=== PATIENT | female | born 1980 | race American Indian/Alaskan Native ===

== ENCOUNTER 2016-07-17 20:35 | Emergency (ER) | payer OTHER ==
[2016-07-17 20:41] VITALS: BP 106/61
--- NOTE | 2016-07-17 21:34 | Emergency Department Report ---
Chief Complaint: Abdominal Pain Stated Complaint: ABDOMINAL PAIN Time Seen by Provider: 07/17/16 21:29 - HPI History of Present Illness: Intermittent lower abdominal pain x 2 weeks, along with some diarrhea, increased urinary frequency and some breast soreness; LMP 06/08/16; took 3 home UPTs yesterday and they were positive; denies N/V, dysuria, hematuria and vaginal bleeding/discharge - ROS Review of Systems: Negative except for those stated in HPI - Exam Vital Signs: Vital Signs 07/17/16 07/17/16 20:40 20:45 Temperature 99.1 F 99.1 F Pulse Rate 80 80 Respiratory 18 18 Rate Blood Pressure 106/61 Blood Pressure 106/61 [Right] O2 Sat by Pulse 100 100 Oximetry Physical Exam: Abdomen - soft, nontender, nondistended MSE screening note: Focused history and physical exam performed. Due to findings the following was ordered: ED Disposition for MSE Condition: Stable Instructions: Abdominal Pain (ED)
[2016-07-17 22:16] LABS: Basophils % (Auto) 0.5 % (0.0-1.8); Eosinophils % (Auto) 5.3 % (0.0-4.3); Hematocrit 36.9 % (30.3-42.9); Hemoglobin 12.1 gm/dl (10.1-14.3); Mean Corpuscular HGB Conc 33 % (30-34); Mean Corpuscular Hemoglobin 31 pg (28-32); Mean Corpuscular Volume 95 fl (79-97); Platelet Count 377 K/mm3 (140-440); Red Blood Count 3.88 M/mm3 (3.65-5.03); Red Cell Distribution Width 13.4 % (13.2-15.2); White Blood Count 11.4 K/mm3 (4.5-11.0)
[2016-07-17 23:24] LABS: Alanine Aminotransferase 17 units/L (7-56); Albumin 3.4 g/dL (3.9-5); Albumin/Globulin Ratio 1.3 %; Alkaline Phosphatase 48 units/L (35-129); Anion Gap 17 mmol/L; Bilirubin,Total < 0.2 mg/dL (0.1-1.2); Blood Urea Nitrogen 8 mg/dL (7-17); Calcium 8.7 mg/dL (8.4-10.2); Carbon Dioxide 22 mmol/L (22-30); Chloride 99.6 mmol/L (98-107); Glucose 89 mg/dL (65-100); Lipase 17 units/L (13-60); Sodium 135 mmol/L (137-145); Total Protein 6.1 g/dL (6.3-8.2)
[2016-07-17 23:55] LABS: Bilirubin,Urine NEG (Negative); Blood,Urine SM (Negative); Ketones,Urine TR mg/dL (Negative); Leukocyte Esterase,Urine MOD (Negative); Mucus,Urine 3+ /HPF; Nitrite,Urine NEG (Negative); Protein,Urine <15 mg/dL mg/dL (Negative)
--- NOTE | 2016-07-24 16:59 | ED Elopement Review ---
ED Pt Elopement review - Results review Lab results: Laboratory Tests 07/17/16 07/17/16 07/17/16 21:58 21:58 Unknown WBC 11.4 H RBC 3.88 Hgb 12.1 Hct 36.9 MCV 95 MCH 31 MCHC 33 RDW 13.4 Plt Count 377 Lymph % (Auto) 28.8 [place] % (Auto) 6.5 Eos % (Auto) 5.3 H Baso % (Auto) 0.5 Lymph # 3.3 [place] # 0.7 Eos # 0.6 H Baso # 0.1 Seg Neutrophils % 58.9 Seg Neutrophils # 6.8 Sodium 135 L Potassium 4.0 Chloride 99.6 Carbon Dioxide 22 Anion Gap 17 BUN 8 Creatinine 0.8 Estimated GFR > 60 BUN/Creatinine Ratio 10.00 Glucose 89 Calcium 8.7 Total Bilirubin < 0.2 AST 15 ALT 17 Alkaline Phosphatase 48 Total Protein 6.1 L Albumin 3.4 L Albumin/Globulin Ratio 1.3 Lipase 17 Urine Color Yellow Urine Turbidity Clear Urine pH 6.0 Ur Specific [place] 1.030 Urine Protein <15 mg/dl Urine Glucose (UA) Neg Urine Ketones Tr Urine Blood Sm Urine Nitrite Neg Urine Bilirubin Neg Urine Urobilinogen 2.0 Ur Leukocyte Esterase Mod Urine WBC (Auto) 56.0 H Urine RBC (Auto) 32.0 U Epithel Cells (Auto) 1.0 Urine Mucus 3+ Urine HCG, Qual Positive A - Call Back decision Pt Call Back Decision: Pt to F/U with PMD (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
== END 2016-07-18 05:19 | disposition left against medical advice (07) ==
LOC: ED 20:35
DX: R10.30 Lower abdominal pain, unspecified (principal); R19.7 Diarrhea, unspecified; Z53.21 Procedure and treatment not carried out due to patient leaving prior to being seen by health care provider
CPT/HCPCS: 36415; 80053; 81001; 81025; 83690; 85025

== ENCOUNTER 2016-11-30 16:41 | Emergency (ER) | payer OTHER, MEDICAID ==
[2016-11-30] MEDS ORDERED: LACTATED RINGERS 500 ML IV ONE (17:14)
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
[2016-11-30 18:53] LABS: Urine Drugs of Abuse Note Disclamer
[2016-11-30 19:42] LABS: Bilirubin,Urine NEG (Negative); Blood,Urine NEG (Negative); Ketones,Urine TR mg/dL (Negative); Leukocyte Esterase,Urine SM (Negative); Mucus,Urine 1+ /HPF; Nitrite,Urine NEG (Negative); Protein,Urine <15 mg/dL mg/dL (Negative); Urobilinogen,Urine < 2.0 mg/dL (<2.0)
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
[2016-11-30] MEDS ORDERED: TYLENOL PO ONE (22:14)
[2016-11-30] MEDS ORDERED: TYLENOL ONE (22:17)
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
[2016-12-01 03:58] VITALS: BP 118/70
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
== END 2016-12-01 03:56 | disposition home or self-care (01) ==
LOC: ED 16:41 → TRG 16:41 → LD 16:41 → TRG 16:44 → EDSTATUS 21:42 → ED 23:00 → LD 12-01 03:56
DX: O26.892 Other specified pregnancy related conditions, second trimester (principal); M79.641 Pain in right hand; M25.511 Pain in right shoulder; Z3A.17 17 weeks gestation of pregnancy; V89.2XXA Person injured in unspecified motor-vehicle accident, traffic, initial encounter; Y93.89 Activity, other specified; Y99.8 Other external cause status; Y92.488 Other paved roadways as the place of occurrence of the external cause
CPT/HCPCS: 51701; 59025; 76805; 76810; 80307; 81001; 85460; 85461; 86850; 86900; 86901; 99284; J2790; J7120

== ENCOUNTER 2017-02-16 05:08 | Inpatient (IN) | payer MEDICAID, OTHER ==
[2017-02-16] MEDS ORDERED: LACTATED RINGERS 2,000 ML ONE (05:58)
[2017-02-16] MEDS ORDERED: PEPCID IV NR (07:08)
[2017-02-16] MEDS ORDERED: REGLAN IV NR (07:08)
[2017-02-16] MEDS ORDERED: BICITRA PO NR (07:08)
[2017-02-16] MEDS ORDERED: BICITRA ONE (07:09)
[2017-02-16] MEDS ORDERED: REGLAN ONE ×2 (07:10→07:20)
[2017-02-16] MEDS ORDERED: PEPCID IV ONE (07:10)
[2017-02-16] MEDS ORDERED: ANCEF/STERILE WATER 2 GM/20 ML 2 GM/20 ML SYRINGE IV ONE (07:10)
[2017-02-16] MEDS ORDERED: NARCAN 0.4 MG/1 ML IV PRN ×2 (07:14→09:30)
[2017-02-16] MEDS ORDERED: DILAUDID IV PRN (07:14)
[2017-02-16] MEDS ORDERED: BENADRYL IV PRN ×2 (07:14→10:00)
[2017-02-16] MEDS ORDERED: ZOFRAN IV PRN (07:14)
--- NOTE | 2017-02-16 07:14 | Anesthesia Consultation ---
Anesthesia Consult and Med Hx Date of service: 02/16/17 - Airway Anesthetic Teeth Evaluation: Good ROM Head & Neck: Adequate Mental/Hyoid Distance: Adequate Mallampati Class: Class II Intubation Access Assessment: Probably Good - Pre-Operative Health Status ASA Pre-Surgery Classification: ASA2 Proposed Anesthetic Plan: Epidural, Spinal - Pulmonary Hx Asthma: No COPD: No Hx Pneumonia: No - Cardiovascular System Hx Hypertension: No - Central Nervous System Hx Seizures: No Hx Psychiatric Problems: No - Endocrine Hx Renal Disease: No Hx Hypothyroidism: No Hx Hyperthyroidism: No - Hematic Hx Anemia: No Hx Sickle Cell Disease: No - Other Systems Hx Alcohol Use: No - Additional Comments Anesthesia Medical History Comments: twins
--- NOTE | 2017-02-16 07:14 | Anesthesia Day of Surgery ---
Anesthesia Day of Surgery - Day of Surgery Patient Examined: Yes Patient H&P Reviewed: Yes Patient is NPO: Yes
--- NOTE | 2017-02-16 07:16 | History and Physical Report ---
History of Present Illness Date of examination: 02/16/17 Date of admission: 02/16/17 05:08 Chief complaint: here for repeat c/s History of present illness: Pt here for repeat c/s. Past History Past Medical History: no pertinent history Past Surgical History: section - Obstetrical History Expected Date of Delivery: 03/09/17 Actual Gestation: 37 Week(s) 0 Day(s) : 3 Para: 2 Number of Living Children: 2 Medications and Allergies Allergies Allergy/AdvReac Type Severity Reaction Status Date / Time No Known Allergies Allergy Verified 07/18/16 01:50 Home Medications Medication Instructions Recorded Confirmed Last Taken Type Acetaminophen [Acetaminophen TAB] 650 mg PO Q6HR PRN #60 tablet 12/01/16 Unknown Rx Active Meds: Active Medications Citric Acid/Sodium Citrate (Bicitra) 30 ml PO ONCE NR Stop: 02/16/17 12:00 Famotidine (Pepcid) 20 mg IV ONCE ONE Stop: 02/16/17 07:09 Cefazolin Sodium (Ancef/Sterile Water 2 Gm/20 Ml) 2 gm in 20 mls @ 80 mls/hr IV PREOP NR PRN Reason: Protocol Stop: 02/16/17 23:59 Lactated Ringer's (Lactated Ringers) 1,000 mls @ 2,250 mls/hr IV PREOP ERIS Stop: 02/17/17 08:27 Oxytocin/Sodium Chloride (Pitocin/Ns 20 Unit/1000ml Drip) 20 units in 1,000 mls @ 0 mls/hr IV TITR ERIS PRN Reason: As Directed Influenza Virus Vaccine Quadrival (Fluarix Quad [id number](36 Mos+)) 0.5 ml IM .ONCE ONE Stop: 02/17/17 12:01 Metoclopramide HCl (Reglan) 10 mg IV ONCE ONE Stop: 02/16/17 07:09 Review of Systems All systems: negative - Physical Exam Lungs: Positive: Normal air movement Abdomen: Positive: normal appearance, soft Extremities: Positive: normal Deep Tendon Reflex Grade: Normal +2 - Obstetrical FHR: auscultation normal Results Result Diagrams: 02/16/17 06:20 All other labs normal. Assessment and Plan - Patient Problems (1) IUGR (intrauterine growth restriction) Current Visit: Yes Status: Acute (2) Rh negative, maternal Current Visit: No Status: Acute Qualifiers: Trimester: T (3) Twin gestation in third trimester Current Visit: No Status: Acute Qualifiers: Multiple gestation type: M (4) Previous delivery affecting , antepartum Current Visit: Yes Status: Acute Plan to address problem: -admit -prepare for repeat c/s x 3
[2017-02-16] MEDS ORDERED: PITOCin/NS 20 UNIT/1000ML DRIP 20,000 MILLIUNITS/1,000 ML BAG IV ONE (07:19)
[2017-02-16 07:27] LABS: Basophils % (Auto) 0.4 % (0.0-1.8); Eosinophils % (Auto) 2.3 % (0.0-4.3); Hematocrit 35.9 % (30.3-42.9); Hemoglobin 11.8 gm/dl (10.1-14.3); Mean Corpuscular HGB Conc 33 % (30-34); Mean Corpuscular Hemoglobin 31 pg (28-32); Mean Corpuscular Volume 96 fl (79-97); Platelet Count 316 K/mm3 (140-440); Red Blood Count 3.75 M/mm3 (3.65-5.03); Red Cell Distribution Width 13.8 % (13.2-15.2); White Blood Count 9.9 K/mm3 (4.5-11.0)
[2017-02-16] MEDS ORDERED: WATER FOR IRRIG STERILE IR ONE (07:40)
[2017-02-16] MEDS ORDERED: NACL 0.9% IR ONE (07:40)
[2017-02-16] MEDS ORDERED: MORPHINE ONE (07:41)
[2017-02-16] MEDS ORDERED: LACTATED RINGERS 1,000 ML IV SCH (08:00)
[2017-02-16] MEDS ORDERED: SODIUM CHLORIDE FLUSH SYRINGE 10 ML IV NR (08:00)
[2017-02-16] MEDS ORDERED: PITOCin/NS 20 UNIT/1000ML DRIP 20 UNITS/1,000 ML BAG IV SCH (08:00)
[2017-02-16] MEDS ORDERED: ANCEF/STERILE WATER 2 GM/20 ML 2 GM/20 ML SYRINGE IV NR (08:00)
[2017-02-16] MEDS ORDERED: NACL 0.9% 1000 ML 1,000 ML ONE (08:00)
[2017-02-16] MEDS ORDERED: DILAUDID ONE (08:44)
--- NOTE | 2017-02-16 09:21 | Operative Report ---
Operative Report Operative Report: Date of procedure: 02/16/2017 Pre-operative diagnosis: Twin gestation 37 weeks Advanced maternal age Intrauterine growth restriction Previous section 2 Post-operative diagnosis: Same Procedure name(s): Repeat low transverse section via Pfannenstiel skin incision Surgeon: Dr. Dickson Material Requirements Planning Manager: Ms. Philly Dash CST Anesthesia: Combined spinal epidural EBL: 700 mL Urine output: 50 mL of clear urine at the end of the procedure Fluids: 1300 mL Findings: Grossly normal fallopian tubes and ovaries bilaterally Twin A: Liveborn female weight 4 lbs. 11 oz. Apgars of 8 and 9 at one and 5 minutes born via vertex presentation Twin B: Liveborn male weight 4 lbs. 5 oz. Apgars of 8 and 9 at one and 5 minutes born via breech extraction Indications: Patient presents for repeat section at 37 weeks due to trend gestation with intrauterine growth restriction for both babies. All risk and benefits and alternatives were discussed with the patient prior to the section. All questions were addressed and answered. Patient signed consent form prior to procedure. Procedure: Patient was taking to the operating room. Patient was then prepped and draped in sterile fashion after anesthesia was found to be adequate. A low transverse skin incision was made with the scalpel through previous incisional scar and carried down to the underlying layer of fascia with the Bovie. The fascia was then incised in the midline and this incision was extended bilaterally with the Bovie. The superior aspect of the fascia was grasped with Radha clamps tented upward and dissected off of the anterior rectus muscles with the scalpel. In similar fashion the inferior aspect of the fascia was grasped with Radha clamps tented upward and dissected off of the anterior rectus muscles. The rectus muscles were then bluntly divided in the midline. The peritoneum was identified and entered into sharply the Luis retractor was placed. The bladder blade was placed. A lower transverse uterine incision was made with the scalpel and extended bilaterally with the bandage scissors. Artificial rupture of membranes was performed yielding clear amniotic fluid. The 's head was then delivered atraumatically. The anterior shoulder and rest of delivered without difficulty. The umbilical cord was clamped x2. The cord was cut. The infant was then placed in sterile bassinet. Attention was then turned to twin B and which artificial rupture membranes also yielded clear fluid. Twin B presented with breech presentation. Twin B was delivered via breech extraction without difficulties. Twin B was placed in sterile bassinet. The cord blood was collected. The placentas were manually extracted in their entirety. 2 cord clamps were placed on the umbilical cord for the placenta for twin B. The uterus was exteriorized and cleared of all clots and debris. The uterine incision was closed using 0 Vicryl in a running locking fashion. Several [id number] sutures were used along the incision line to secure excellent hemostasis. The posterior cul-de-sac was copiously irrigated. The Ulis retractor was removed. The uterus was returned to the abdomen. The gutters were also irrigated. The anterior rectus muscles were reapproximated using 3-0 Vicryl. The anterior rectus fascia was reapproximated using 0 Vicryl in a running fashion. The subcuticular fat was reapproximated using 2-0 Vicryl in a running fashion. The skin was reapproximated with 4-0 Monocryl in a subcuticular stitch. The patient tolerated the procedure well. Sponge lap and needle counts were all correct x3. Patient was taken to the recovery room awake and in stable condition.
[2017-02-16] MEDS ORDERED: LANSINOH TP PRN (09:30)
[2017-02-16] MEDS ORDERED: TUCKS PAD TP PRN (09:30)
--- NOTE | 2017-02-16 09:51 | Post Anesthesia Evaluation ---
- Post Anesthesia Evaluation Patient Participated: Yes Airway Patent: Yes Stable Respiratory Function: Yes Nausea/Vomiting: No Temp > 96.8F: Yes Pain Manageable: Yes Adequeate Hydration: Yes Anesthesia Complications: No Block Receding Appropriately: Yes Patient on Ventilator: No
[2017-02-16] MEDS ORDERED: MORPHINE IV PRN (10:00)
[2017-02-16] MEDS: FEOSOL PO SCH (16:36)
[2017-02-16] MEDS: TORADOL IV PRN ×2 (17:05→22:30)
[2017-02-16] MEDS: ANCEF/NS 1 GM/50 ML 1 GM/50 ML BAG IV SCH (17:05)
[2017-02-16 22:31] LABS: Hematocrit 34.6 % (30.3-42.9); Hemoglobin 11.7 gm/dl (10.1-14.3)
[2017-02-17] MEDS: ANCEF/NS 1 GM/50 ML 1 GM/50 ML BAG IV SCH (00:25)
[2017-02-17] MEDS ORDERED: BOOSTRIX IM ONE (06:00)
[2017-02-17] MEDS: FEOSOL PO SCH (08:36)
[2017-02-17] MEDS: MOTRIN PO PRN ×3 (08:37→23:25)
[2017-02-17] MEDS: NORCO 5/325 PO PRN ×3 (08:38→23:24)
--- NOTE | 2017-02-17 11:55 | Progress Note ---
Assessment and Plan - Patient Problems (1) IUGR (intrauterine growth restriction) Current Visit: Yes Status: Resolved (2) Rh negative, maternal Current Visit: No Status: Acute Qualifiers: Trimester: T (3) Twin gestation in third trimester Current Visit: No Status: Acute Qualifiers: Multiple gestation type: M (4) Previous delivery affecting , antepartum Current Visit: Yes Status: Acute (5) Status post repeat low transverse section Current Visit: Yes Status: Acute Plan to address problem: -routine post care/ post op care -ADAT -ambulate today Subjective - Subjective Date of service: 02/17/17 Principal diagnosis: POD #1 s/p RPT C/S of twins Interval history: Pt doing well. no c/o today. Pain is well controlled. Patient reports: appetite normal, voiding normally, pain well controlled, flatus , ambulating normally, no dizzy ambulation : doing well, in NICU, bottle feeding Objective - Vital Signs Latest vital signs: Vital Signs Temp Pulse Resp BP 02/17/17 08:38 20 02/17/17 08:37 20 02/17/17 08:21 98.6 F 80 18 108/69 02/17/17 00:00 98.6 F 71 18 111/71 02/16/17 21:00 98.6 F 82 16 107/68 02/16/17 16:35 97.7 F 64 18 97/57 Intake and Output 02/16/17 02/17/17 02/17/17 22:59 06:59 14:59 Intake Total 840 Output Total 300 500 Balance 540 -500 Intake: IV 50 ANCEF/NS 1 GM/50 ML 1 gm 50 In 50 ml @ 100 mls/hr IV Q8H [facility] Rx#:[id number] Oral 490 Intake, Free Water 300 Output: Urine 300 500 Indwelling Catheter 300 Void 500 Other: Total, Intake Amount 250 Total, Output Amount 300 500 # Voids Void 1 - Exam Cardiovascular: Present: Normal S1, Normal S2 Lungs: Present: Clear to auscultation, Normal air movement Abdomen: Present: normal appearance, soft, normal bowel sounds. Absent: distention, tenderness, guarding Uterus: Present: normal, firm, fundal height below umbilicus. Absent: bogginess , tenderness Extremities: Present: normal. Absent: tenderness, edema Deep Tendon Reflex Grade: Normal +2 Incision: Present: normal, dry, intact
[2017-02-17] MEDS ORDERED: Fluarix Quad 2017-2018(36 MOS+) IM ONE (12:00)
[2017-02-18] MEDS: MOTRIN PO PRN ×3 (04:47→18:17)
[2017-02-18] MEDS: NORCO 5/325 PO PRN ×5 (04:47→22:17)
[2017-02-18] MEDS: FEOSOL PO SCH ×2 (10:30→16:47)
--- NOTE | 2017-02-18 10:50 | Progress Note ---
Assessment and Plan - Patient Problems (1) Previous delivery affecting , antepartum Current Visit: Yes Status: Acute Plan to address problem: Patient complaining of gas pain and no flatus as of yet. She is afebrile vital signs stable. We'll give suppository today. She desires discharge on tomorrow if remained stable (2) Twin gestation in third trimester Current Visit: No Status: Acute Qualifiers: Multiple gestation type: M Subjective - Subjective Date of service: 02/18/17 Principal diagnosis: POD #2 s/p RPT C/S of twins Patient reports: appetite normal, voiding normally, pain well controlled, no flatus, no bowel movement Bradley: doing well, other (1 infant received a light therapy the other be doing well) Objective - Vital Signs Latest vital signs: Vital Signs Temp Pulse Resp BP 02/18/17 08:34 97.8 F 78 18 104/54 02/18/17 00:00 98.6 F 77 16 121/77 02/17/17 18:35 20 02/17/17 17:37 98.7 F 79 18 110/70 02/17/17 16:02 20 Intake and Output 02/17/17 02/18/17 02/18/17 22:59 06:59 14:59 Intake Total 480 550 360 Output Total 450 Balance 30 550 360 Intake: Oral 480 250 360 Intake, Free Water 300 Output: Urine 450 Void 450 Other: Total, Intake Amount 480 250 360 Total, Output Amount 450 # Voids Void 1 - Exam Breasts: Present: deferred Cardiovascular: Present: Regular rate Lungs: Present: Normal air movement Abdomen: Present: normal appearance, soft Uterus: Present: firm, fundal height below umbilicus Extremities: Present: edema Incision: Present: normal, dry, intact
[2017-02-18] MEDS ORDERED: DULCOLAX PR ONE (11:00)
[2017-02-18] MEDS ORDERED: CITRATE OF MAGNESIA PO ONE (18:03)
[2017-02-19] MEDS: MOTRIN PO PRN ×3 (00:26→13:56)
--- NOTE | 2017-02-19 07:25 | Discharge Summary ---
Providers - Providers Date of Admission: 02/16/17 05:08 Date of discharge: 02/19/17 Attending physician: SHARAN LUIS Primary care physician: SHARAN LUIS Hospitalization Reason for admission: section Delivery: Procedure: section Incision: normal, dry, intact complications: none Discharge diagnosis: IUP at term delivered baby: twins Hospital course: See H&P for details. Patient was admitted and underwent above procedure without complications. Her post operative course was benign she was afebrile throughout. Patient postoperative day 1 hematocrit was in an acceptable range. Patient had no orthostatic symptoms. Patient was tolerating regular diet and voiding without difficulty at time of discharge. Patient incision was healing well without evidence of infection. Disposition: - TO HOME OR SELFCARE - Discharge Diagnoses (1) Previous delivery affecting , antepartum Status: Acute (2) Twin gestation in third trimester Status: Acute Qualifiers: Multiple gestation type: unspecified Qualified Code(s): O30.003 - Twin , unspecified number of placenta and unspecified number of amniotic sacs, third trimester Plan - Discharge Medications Prescriptions: Lidocain2.5%/Prilocai2.5% [Emla] 1 applic TP ONCE #1 tube Ibuprofen [Motrin 800 MG tab] 800 mg PO Q8HR PRN #30 tablet PRN Reason: Pain oxyCODONE /ACETAMINOPHEN [Percocet 5/325] 1 tab PO Q4HR #30 tab - Provider Discharge Summary Activity: routine, no sex for 6 weeks, no heavy lifting 4 weeks, no strenuous exercise Diet: routine Instructions: routine Additional instructions: [] Smoking cessation referral if applicable(refer to patient education folder for contact #) [] Refer to [facility] Booklet Call your doctor immediately for: * Fever > 100.5 * Heavy vaginal bleeding ( >1 pad per hour) * Severe persistent headache * Shortness of breath * Reddened, hot, painful area to leg or breast * Drainage or odor from incision. * Keep incision clean and dry at all times and follow doctor's instructions regarding bathing/showering - Follow up plan Follow up: SHARAN LUIS MD [Primary Care Provider] - 7 Days
[2017-02-19] MEDS: NORCO 5/325 PO PRN (10:53)
[2017-02-19] MEDS: FEOSOL PO SCH (10:53)
[2017-02-19] MEDS ORDERED: DEPO-PROVERA (CONTRACEPTION) IM ONE (15:01)
[2017-02-19 18:26] VITALS: BP 118/77
== END 2017-02-19 17:05 | disposition home or self-care (01) | DRG 765 ==
LOC: APU 05:08 → OB 10:59
PROVIDERS: ADMIT Obstetrics & Gynecology; ATTEND Obstetrics & Gynecology
PROC: 10D00Z1 Extraction of Products of Conception, Low, Open Approach (ICD-10-PCS; principal; 2017-02-16)
PROC: 3E0234Z Introduction of Serum, Toxoid and Vaccine into Muscle, Percutaneous Approach (ICD-10-PCS; 2017-02-17)
PROC: 3E0334Z Introduction of Serum, Toxoid and Vaccine into Peripheral Vein, Percutaneous Approach (ICD-10-PCS; 2017-02-17)
DX: O30.003 Twin pregnancy, unspecified number of placenta and unspecified number of amniotic sacs, third trimester (principal); O36.5930 Maternal care for other known or suspected poor fetal growth, third trimester, not applicable or unspecified; Z3A.37 37 weeks gestation of pregnancy; Z37.2 Twins, both liveborn; O09.523 Supervision of elderly multigravida, third trimester; Z23 Encounter for immunization; O26.893 Other specified pregnancy related conditions, third trimester; Z67.91 Unspecified blood type, Rh negative; O32.1XX2 Maternal care for breech presentation, fetus 2
CPT/HCPCS: 36415; 85014; 85018; 85025; 85461; 86850; 86900; 86901; 88305; 88307; 90471; 90715; 99211; C9250; G0463; J0690; J1050; J1170; J1885; J2270; J2405; J2590; J2765; J2790; J7030; J7120

== ENCOUNTER 2018-01-18 23:42 | Emergency (ER) | payer MEDICAID ==
[2018-01-18 23:59] VITALS: BP 152/85
[2018-01-19] MEDS ORDERED: TYLENOL ONE (00:51)
[2018-01-19] MEDS ORDERED: BENADRYL PO ONE ×2 (00:52→00:57)
[2018-01-19] MEDS ORDERED: TYLENOL PO ONE (00:57)
--- NOTE | 2018-01-19 02:21 | XRay Report ---
FINAL REPORT PROCEDURE: XR SHOULDER 2+V RT TECHNIQUE: Right shoulder radiographs including AP views in internal and external rotation and abduction. CPT 68858 HISTORY: Right shoulder pain COMPARISON: No prior studies are available for comparison. FINDINGS: Fracture (s) and/or Dislocation(s): None . Joint space(s): Normal . Soft tissues: Normal . Bone mineralization: Normal . Foreign bodies: None . IMPRESSION: Normal Examination
--- NOTE | 2018-01-19 02:22 | XRay Report ---
FINAL REPORT PROCEDURE: XR SPINE CERVICAL 2-3V TECHNIQUE: Cervical spine radiographs, AP, lateral, and open-mouth odontoid views. CPT 29026 HISTORY: neck pain COMPARISON: No prior studies are available for comparison. FINDINGS: Prevertebral soft tissues: Normal . Alignment: Normal . Vertebral body heights/Disk spaces: Normal . Fracture(s): None . Facets: Normal . Bone mineralization: Normal . IMPRESSION: Normal Examination
--- NOTE | 2018-01-19 04:12 | Emergency Department Report ---
ED Upper Extremity Inj HPI - General Chief Complaint: Shoulder Injury Stated Complaint: BACK/NECK INJURY Time Seen by Provider: 01/19/18 04:07 Source: patient Mode of arrival: Ambulatory Limitations: No Limitations - History of Present Illness Initial Comments: 37-year-old -[place] female reports that the ceiling fell and hit her on the right side of her body. Patient complains of right shoulder pain with numbness to the right arm as well as neck pain and right ear pain. Patient also complains of itchy skin from the fiberglass. Patient denies any loss of consciousness. Patient took no pain medication prior to arrival. She reports this happened approximately 8 to 9:00 on Sunday night. She reports that the pain is worse when she moves a certain way. MD Complaint: Injury to:: right, shoulder -: During the night Time: 20:30 Other Extremity Injury: Shoulder: Right Other Injuries: neck Severity scale (0 -10): 4 Worsens With: rest Context: direct blow Associated Symptoms: numbness, neck pain - Related Data Previous Rx's Medication Instructions Recorded Last Taken Type Acetaminophen [Acetaminophen TAB] 650 mg PO Q6HR PRN #60 tablet 12/01/16 Unknown Rx Lidocain2.5%/Prilocai2.5% [Emla] 1 applic TP ONCE #1 tube 02/16/17 Unknown Rx oxyCODONE /ACETAMINOPHEN [Percocet 1 tab PO Q4HR #30 tab 02/16/17 Unknown Rx 5/325] Ibuprofen [Motrin 800 MG tab] 800 mg PO Q8HR PRN #30 tablet 01/19/18 Unknown Rx Allergies Allergy/AdvReac Type Severity Reaction Status Date / Time No Known Allergies Allergy Verified 07/18/16 01:50 ED Review of Systems ROS: Stated complaint: BACK/NECK INJURY Other details as noted in HPI ENT: ear pain (right ear) Gastrointestinal: denies: abdominal pain, nausea, diarrhea Musculoskeletal: arthralgia (right shoulder, neck) Neurological: numbness (right arm) ED Past Medical Hx - Past Medical History Hx Hypertension: No Hx Congestive Heart Failure: No Hx Diabetes: No Hx Deep Vein Thrombosis: No Hx Renal Disease: No Hx Sickle Cell Disease: No Hx Seizures: No Hx Asthma: No Hx COPD: No Hx HIV: No Additional medical history: h/o gestational DM - Surgical History Additional Surgical History: c-sectionx2 - Social History Smoking Status: Current Every Day Smoker Substance Use Type: None - Medications Home Medications: Home Medications Medication Instructions Recorded Confirmed Last Taken Type Acetaminophen [Acetaminophen TAB] 650 mg PO Q6HR PRN #60 tablet 12/01/16 Unknown Rx Lidocain2.5%/Prilocai2.5% [Emla] 1 applic TP ONCE #1 tube 02/16/17 Unknown Rx oxyCODONE /ACETAMINOPHEN [Percocet 1 tab PO Q4HR #30 tab 02/16/17 Unknown Rx 5/325] Ibuprofen [Motrin 800 MG tab] 800 mg PO Q8HR PRN #30 tablet 01/19/18 Unknown Rx ED Physical Exam - General Limitations: No Limitations General appearance: alert, in no apparent distress - Head Head exam: Present: atraumatic, normocephalic - Eye Eye exam: Present: EOMI - ENT ENT exam: Present: mucous membranes moist - Neck Neck exam: Present: tenderness, full ROM - Expanded Upper Extremity Exam Right Shoulder Exam: Present: full ROM, tenderness (trapeze tenderness to the right side). Absent: swelling Upper Arm exam: Present: full ROM, tenderness. Absent: swelling, abrasion, laceration, ecchymosis, deformity, dislocation, erythema Elbow exam: Present: normal inspection, full ROM. Absent: tenderness, swelling - Back Exam Back exam: Present: tenderness (upper back) - Neurological Exam Neurological exam: Present: alert, oriented X3 - Psychiatric Psychiatric exam: Present: normal affect, agitated - Expanded Skin Exam Expanded Distribution of rash: [id number] Description of rash: Present: papular ED Course Vital Signs 01/18/18 01/19/18 01/19/18 23:51 00:42 02:01 Temperature 98.9 F Pulse Rate Respiratory 18 18 Rate Blood Pressure 152/85 O2 Sat by Pulse 100 Oximetry 01/19/18 03:39 Temperature Pulse Rate 78 Respiratory 18 Rate Blood Pressure O2 Sat by Pulse 100 Oximetry ED Medical Decision Making - Radiology Data Radiology results: report reviewed, image reviewed FINDINGS: Fracture (s) and/or Dislocation(s): None . Joint space(s): Normal . Soft tissues: Normal . Bone mineralization: Normal . Foreign bodies: None . IMPRESSION: Normal Examination Transcribed By: [facility] Dictated By: LUCIO POOLE MD Electronically Authenticated By: LUCIO POOLE MD Signed Date/Time: 01/19/18215 DD/ 5 TD/TT: 01/19/18215 FINDINGS: Prevertebral soft tissues: Normal . Alignment: Normal . Vertebral body heights/Disk spaces: Normal . Fracture(s): None . Facets: Normal . Bone mineralization: Normal . IMPRESSION: Normal Examination Transcribed By: [facility] Dictated By: LUCIO POOLE MD Electronically Authenticated By: LUCIO POOLE MD Signed Date/Time: 01/19/18216 DD/ 6 TD/TT: 01/19/18216 - Medical Decision Making Patient has been evaluated by this provider fast track. Patient was given Tylenol for pain management as well as Benadryl to help with the itchiness. X-rays were ordered and performed which are within normal limits. Patient will be discharged with ibuprofen and to follow up with orthopedics if she continues to have pain. Critical care attestation.: If time is entered above; I have spent that time in minutes in the direct care of this critically ill patient, excluding procedure time. ED Disposition Clinical Impression: Contusion, shoulder /upper arm, Neck pain on right side Disposition: DC-01 TO HOME OR SELFCARE Is pt being admited?: No Does the pt Need Aspirin: No Condition: Stable Instructions: Shoulder Sprain (ED) Additional Instructions: Take pain medication as needed. If her symptoms persist or gets worse please follow-up with orthopedics. Prescriptions: Ibuprofen [Motrin 800 MG tab] 800 mg PO Q8HR PRN #30 tablet PRN Reason: Pain Referrals: PRIMARY MD SAMEER [Primary Care Provider] - 3-5 Days HALEY BERGERON MD [Staff Physician] - 3-5 Days Forms: Work/School Release Form(ED)
[2018-01-19] MEDS ORDERED: NORCO 7.5/325 PO ONE (04:21)
== END 2018-01-19 04:40 | disposition home or self-care (01) ==
LOC: ED 23:42
DX: S40.011A Contusion of right shoulder, initial encounter (principal); M54.2 Cervicalgia; R20.0 Anesthesia of skin; F17.200 Nicotine dependence, unspecified, uncomplicated; W20.8XXA Other cause of strike by thrown, projected or falling object, initial encounter; Y93.89 Activity, other specified; Y92.89 Other specified places as the place of occurrence of the external cause; Y99.8 Other external cause status
CPT/HCPCS: 72040; 99283